=== PATIENT | female | born 1965 | race African-American/Black ===

== ENCOUNTER → 2019-04-08 | Outpatient (CLI) | payer BC ==
--- NOTE | 2019-04-08 15:13 | CARD ---
MR#: [id number] Date of Study: 04/08/2019 Ordering Physician: HENOK GUTIERREZ, Referring Physician: HENOK GUTIERREZ, Tech: Nanette Quijano APPROVED REPORT EXAM: Two-dimensional and M-mode echocardiogram with Doppler and color Doppler. Other Information Quality : AverageHR: 60bpm INDICATION Palpitations Murmur RISK FACTORS Hypertension Hyperlipidemia 2D DIMENSIONS RVDd2.5 (2.9-3.5cm)Left Atrium(2D)3.0 (1.6-4.0cm) IVSd0.7 (0.7-1.1cm)Aortic Root(2D)2.8 (2.0-3.7cm) LVDd4.8 (3.9-5.9cm)LVOT Diameter2.0 (1.8-2.4cm) PWd1.1 (0.7-1.1cm)LVDs3.1 (2.5-4.0cm) FS (%) 36.3 %SV70.8 ml Aortic Valve AoV Peak Blaine.145.8cm/sAoV VTI28.3cm AO Peak GR.8.5mmHgLVOT Peak Blaine.99.0cm/s LVOT VTI 21.18cmAO Mean GR.4mmHg THA (VMAX)1.68rz1TWP (VTI)2.33cm2 Mitral Valve MV E Bbpinddy16.1cm/sMV DECEL KLUI457oj MV A Tfwdfiil40.8cm/sMV FPB63qd E/A Ratio1.1MVA (PHT)4.36cm2 TDI E/Lateral E'9.8E/Medial E'9.6 Pulmonary Valve PV Peak Kwujryhg644.6cm/sPV Peak Grad.5mmHg Tricuspid Valve TR P. Ykkpiulr187yj/sRAP YXOOOQJQ9fqQl TR Peak Gr.47ffNnGQSR47cqJz Pulmonary Vein S1 Vdqyncxc27.8cm/sD2 Njfyjctp23.8cm/s PVa [id number] LEFT VENTRICLE The left ventricle is normal size. There is normal left ventricular wall thickness. The left ventricu lar systolic function is normal and the ejection fraction is within normal range. The Ejection Fracti on is 50-55%. There is normal LV segmental wall motion. The left ventricular diastolic function and f illing is normal for age. RIGHT VENTRICLE The right ventricle is normal size. There is normal right ventricular wall thickness. The right ventr icular systolic function is normal. ATRIA The left atrium size is normal. The right atrium size is normal. The interatrial septum is intact wit h no evidence for an atrial septal defect or patent foramen ovale as noted on 2-D or Doppler imaging. AORTIC VALVE The aortic valve is normal in structure and function. Doppler and Color Flow revealed no significant aortic regurgitation. There is no significant aortic valvular stenosis. MITRAL VALVE The mitral valve is normal in structure and function. There is no evidence of mitral valve prolapse. There is no mitral valve stenosis. Doppler and Color Flow revealed no mitral valve regurgitation note d. TRICUSPID VALVE The tricuspid valve is normal in structure and function. Doppler and Color Flow revealed trace tricus pid regurgitation with an estimated PAP of 31 mmHg. There is no tricuspid valve stenosis. PULMONIC VALVE The pulmonary valve is normal in structure and function. Doppler and Color Flow revealed trace pulmon ic valvular regurgitation. GREAT VESSELS The aortic root is normal in size. The IVC is normal in size and collapses >50% with inspiration. PERICARDIAL EFFUSION There is no evidence of significant pericardial effusion. Critical Notification Critical Value: No <Conclusion> The left ventricle is normal size. The left ventricular systolic function is normal and the ejection fraction is within normal range. The Ejection Fraction is 50-55%. There is no significant aortic valvular stenosis. Doppler and Color Flow revealed no significant aortic regurgitation. Doppler and Color Flow revealed no mitral valve regurgitation noted. Doppler and Color Flow revealed trace tricuspid regurgitation with an estimated PAP of 31 mmHg. Signed by : Henok Gutierrez MD Electronically Approved : 04/08/2019 15:13:00
== END | disposition home or self-care (01) ==
LOC: ECHO 13:36
PROVIDERS: ATTEND Internal Medicine Cardiovascular Disease
DX: R00.2 Palpitations (principal); R01.1 Cardiac murmur, unspecified; I10 Essential (primary) hypertension; E78.5 Hyperlipidemia, unspecified
CPT/HCPCS: 93306